=== PATIENT | female | born 1995 | race Caucasian/White ===

== ENCOUNTER 2021-11-09 13:01 | Outpatient (CLI) | payer BC | END 2021-11-09 13:02 | disposition home or self-care (01) | LOC: BICULT 13:01 | PROVIDERS: ATTEND Internal Medicine Gastroenterology | DX: R10.11 Right upper quadrant pain (principal); K21.9 Gastro-esophageal reflux disease without esophagitis; K76.9 Liver disease, unspecified | CPT/HCPCS: 76705 ==